=== PATIENT | male | born 1960 | race Caucasian/White ===

== ENCOUNTER 2017-07-14 11:55 | Outpatient (CLI) | payer OTHER ==
[~2017-07-14 11:55] MED LIST: TOPROL XL25 M1 PO; ULTRACET PO; XARELTO20 MG PO
== END 2017-07-14 15:04 | disposition home or self-care (01) ==
LOC: TOM 11:55
DX: I10 Essential (primary) hypertension (principal); I48.0 Paroxysmal atrial fibrillation; E78.2 Mixed hyperlipidemia; M62.838 Other muscle spasm; M12.522 Traumatic arthropathy, left elbow; M25.552 Pain in left hip

== ENCOUNTER 2017-07-14 12:15 | Outpatient (CLI) | payer OTHER | END 2017-07-14 15:04 | disposition home or self-care (01) | LOC: RAD 12:15 | DX: I10 Essential (primary) hypertension (principal); I48.0 Paroxysmal atrial fibrillation; E78.2 Mixed hyperlipidemia; M62.838 Other muscle spasm; M12.522 Traumatic arthropathy, left elbow; M25.552 Pain in left hip; M54.5 Low back pain; M12.559 Traumatic arthropathy, unspecified hip ==

== ENCOUNTER 2018-04-03 11:04 | Emergency (ER) | payer OTHER ==
[~2018-04-03] VITALS: Ht 177.8 cm; Wt 90.7 kg
== END 2018-04-03 13:32 | disposition home or self-care (01) ==
LOC: ER 11:04
DX: K06.8 Other specified disorders of gingiva and edentulous alveolar ridge (principal)